=== PATIENT | male | born 1995 | race Caucasian/White ===

== ENCOUNTER 2016-07-18 21:14 | Emergency (ER) | payer BC ==
[~2016-07-18] VITALS: Ht 182.9 cm; Wt 113.4 kg
[~2016-07-18 21:14] MED LIST: LEVE500T13 PO
[2016-07-18 21:18] VITALS: BP 162/90; PULSE 95; RESP 16; TEMP 97.8; O2SAT 98
--- NOTE | 2016-07-18 21:38 | NUR ---
Pt ambulatory to bed 8. Report given to BRUNO Pina.
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
--- NOTE | 2016-07-18 21:55 | NUR ---
ER Dr. Alcantar at bedside examining patient.
[2016-07-18] MEDS ORDERED: HYDROmorphone 1 MG INJ. 1 MG/ML AMPUL IM ONE (22:30)
[2016-07-18 22:45] VITALS: BP 146/83; PULSE 89; RESP 18; TEMP 97.8; O2SAT 98
--- NOTE | 2016-07-18 22:45 | NUR ---
Patient given written and verbal discharge instructions and verbalizes understanding. ER MD discussed with patient the results and treatment provided. Patient in stable condition. ID arm band removed. Rx of [place], Keppra and Topamax given. Patient educated on pain management and to follow up with PMD. Pain Scale 7/10. Opportunity for questions provided and answered.
== END 2016-07-18 22:45 | disposition home or self-care (01) ==
LOC: SED 21:14
DX: R51 Headache (principal); R07.89 Other chest pain; G89.29 Other chronic pain; G43.909 Migraine, unspecified, not intractable, without status migrainosus
CPT/HCPCS: 96372; 99283; J1170

== ENCOUNTER 2016-08-15 18:20 | Emergency (ER) | payer BC ==
[~2016-08-15] VITALS: Ht 182.9 cm; Wt 113.4 kg
[2016-08-15 18:20] VITALS: BP_SYST 144
--- NOTE | 2016-08-15 18:20 | NUR ---
Patient triaged and placed in waiting room. VSS and patient appears in no acute distress at this time. Accompanied by MOTHER, awaiting available bed, and MD notified of need for MSE.
--- NOTE | 2016-08-15 18:40 | NUR ---
TAKEN TO LABORATORY THEN PLACED IN BED #1. MOTHER AT BEDSIDE FOR SUPPORT
--- NOTE | 2016-08-15 18:45 | NUR ---
ER at bedside examining patient.
[2016-08-15 18:54] LABS: BASOPHILS % (AUTO) 0.4 % (0.0-2.0); EOSINOPHILS # (AUTO) 0.3 K/uL (0.0-0.4); EOSINOPHILS % (AUTO) 3.9 % (0.0-4.0); HEMATOCRIT 45.7 % (36-54); HEMOGLOBIN 15.3 g/dL (14.0-18.0); LYMPHOCYTES # (AUTO) 2.7 K/uL (1.0-5.5); LYMPHOCYTES % (AUTO) 33.9 % (20.5-51.5); MEAN CORPUSCULAR HEMOGLOBIN 28 pg (27-31); MEAN CORPUSCULAR HGB CONC 34 % (32-36); MEAN CORPUSCULAR VOLUME 84 fL (79.0-98.0); MONOCYTES # (AUTO) 0.5 K/uL (0.0-1.0); MONOCYTES % (AUTO) 6.5 % (1.7-9.3); NEUTROPHILS # (AUTO) 4.6 K/uL (1.8-7.7); NEUTROPHILS % (AUTO) 55.3 % (40.0-70.0); PLATELET COUNT (AUTO) 317 K/uL (130-430); RED BLOOD CELL COUNT(AUTO) 5.46 MIL/uL (4.2-6.2); RED CELL DISTRIBUTION WIDTH 11.6 % (9.0-15.0); WHITE BLOOD COUNT (AUTO) 8.1 K/uL (4.8-10.8)
[2016-08-15 19:06] LABS: CALCIUM 9.2 mg/dL (8.4-11.0); CREATININE 0.97 mg/dL (0.55-1.30); POTASSIUM 3.8 mmol/L (3.5-5.1); PROTHROMBIN TIME 10.4 SECS (9.5-12.5)
--- NOTE | 2016-08-15 19:06 | NUR ---
Placed on cardiac cath tech, blood pressure machine and pulse oximeter. To gown for exam. Side rails up.
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
--- NOTE | 2016-08-15 19:07 | NUR ---
EKG done read by Dr beth
[2016-08-15 19:11] LABS: ALBUMIN 4.5 g/dL (3.4-4.8); TOTAL BILIRUBIN 0.3 mg/dL (0.0-1.0); TOTAL PROTEIN, SERUM 8.2 g/dL (6.4-8.3)
--- NOTE | 2016-08-15 19:18 | NUR ---
report given to hema CARR
[2016-08-15] MEDS ORDERED: KETOROLAC TROMETHAMINE 60 MG/2 ML VIAL IM ONE (20:15)
[2016-08-15] MEDS ORDERED: MORPHINE 4 MG/ML INJ. SYRINGE IM ONE (21:00)
--- NOTE | 2016-08-15 21:29 | NUR ---
Patient on gurney calm, states pain still intense. ER MD Moser aware
[2016-08-15 22:14] VITALS: BP_SYST 127
--- NOTE | 2016-08-15 22:14 | NUR ---
Patient given written and verbal discharge instructions and verbalizes understanding. ER MD Moser discussed with patient the results and treatment provided. Patient in stable condition. ID arm band removed. Patient educated on pain management and to follow up with PMD. Pain Scale 0/10. Opportunity for questions provided and answered.
== END 2016-08-15 22:14 | disposition home or self-care (01) ==
LOC: SED 18:20
DX: G89.29 Other chronic pain (principal); R07.9 Chest pain, unspecified; G43.909 Migraine, unspecified, not intractable, without status migrainosus
CPT/HCPCS: 36415; 70450; 71010; 80053; 83880; 84484; 85025; 85610; 85730; 93005; 96372; 99285; J1885; J2270

== ENCOUNTER 2018-02-16 23:58 | Emergency (ER) | payer BC, OTHER ==
[~2018-02-16] VITALS: Ht 182.9 cm; Wt 108.9 kg
[~2018-02-16 23:58] MED LIST changes: -LEVE500T13 PO; +LEVE500T9 PO
[2018-02-17 00:10] VITALS: BP_SYST 159
[2018-02-17] MEDS ORDERED: KETOROLAC TROMETHAMINE 30 MG VIAL IM ONE (00:45)
[2018-02-17] MEDS ORDERED: HYDROcodone/ACETAMIN 5-325 MG TAB (NORCO/ VICODIN) PO ONE (01:30)
[2018-02-17 01:55] VITALS: BP_SYST 140
== END 2018-02-17 01:50 | disposition home or self-care (01) ==
LOC: SED 23:58
DX: G44.309 Post-traumatic headache, unspecified, not intractable (principal)
CPT/HCPCS: 96372; 99283; J1885